=== PATIENT | male | born 1980 | race African-American/Black ===

== ENCOUNTER 2017-09-02 22:13 | Emergency (ER) | payer MEDICAID ==
[~2017-09-02] VITALS: Ht 188 cm; Wt 74.8 kg
[2017-09-02 23:23] VITALS: BP 131/88
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
[2017-09-02 23:55] VITALS: BP 131/88
== END 2017-09-02 23:55 | disposition home or self-care (01) ==
LOC: EMR 23:46
DX: L90.5 Scar conditions and fibrosis of skin (principal); M54.2 Cervicalgia; J45.909 Unspecified asthma, uncomplicated; Z88.0 Allergy status to penicillin; Z91.013 Allergy to seafood
CPT/HCPCS: 99282